=== PATIENT | female | born 1930 | race Caucasian/White ===

== ENCOUNTER → 2017-05-06 | Outpatient (CLI) | payer OTHER ==
[2016-09-28 10:57] VITALS: BP 146/68
--- NOTE | 2017-05-06 15:20 | RAD ---
HISTORY: Pain Study: Acute abdominal series Comparison: 09/25/2016 Findings: The trachea is midline. The cardiac silhouette is unremarkable. The lungs are clear without focal infiltrate or effusion. The bony thorax is unremarkable. Flat plate and upright evaluation of the abdomen demonstrates a normal bowel gas pattern. No pathol ogical soft tissue mass or calcification can be observed. The bony structures are grossly intact. S urgical clips are seen in the right upper quadrant from a previous cholecystectomy. There is a surgi phi clip projecting in the left lower quadrant. IMPRESSION: 1. No acute cardiopulmonary disease. 2. No evidence for acute abdominal pathology identified. Reported By:
== END ==
LOC: RAD 14:55
PROVIDERS: ATTEND Obstetrics & Gynecology Obstetrics
DX: R11.2 Nausea with vomiting, unspecified (principal)
CPT/HCPCS: 74022